=== PATIENT | female | born 1990 | race American Indian/Alaskan Native ===

== ENCOUNTER 2017-02-04 06:01 | Emergency (ER) | payer MEDICAID ==
[2017-02-04] MEDS: MOTRIN PO ONE (06:28)
[2017-02-04 07:01] LABS: Basophils % (Auto) 1.1 % (0.0-1.8); Eosinophils % (Auto) 0.7 % (0.0-4.3); Hematocrit 36.4 % (30.3-42.9); Hemoglobin 12.2 gm/dl (10.1-14.3); Mean Corpuscular HGB Conc 33 % (30-34); Mean Corpuscular Hemoglobin 29 pg (28-32); Mean Corpuscular Volume 88 fl (79-97); Platelet Count 242 K/mm3 (140-440); Red Blood Count 4.16 M/mm3 (3.65-5.03); Red Cell Distribution Width 14.8 % (13.2-15.2); White Blood Count 5.8 K/mm3 (4.5-11.0)
[2017-02-04 07:09] LABS: Anion Gap 19 mmol/L; BUN/Creatinine Ratio 15; Blood Urea Nitrogen 9 mg/dL (7-17); Calcium 8.5 mg/dL (8.4-10.2); Carbon Dioxide 23 mmol/L (22-30); Glucose 81 mg/dL (65-100); Potassium 3.5 mmol/L (3.6-5.0); Sodium 143 mmol/L (137-145)
--- NOTE | 2017-02-04 08:16 | XRay Report ---
CHEST 2 VIEWS INDICATION: Chest pain. COMPARISON: None similar. FINDINGS: Frontal and lateral chest radiographs demonstrate slight exaggerated heart size. Normal mediastinal and hilar contours. Clear lungs. Unremarkable bones. Abdomen shielded. CONCLUSION: Top normal heart size. Thank you for the opportunity to participate in this patient's care.
--- NOTE | 2017-02-04 11:03 | Emergency Department Report ---
ED Chest Pain HPI - General Chief Complaint: Chest Pain Stated Complaint: CHEST PAIN Time Seen by Provider: 02/04/17 10:53 Source: patient Mode of arrival: Stretcher Limitations: No Limitations - History of Present Illness Initial Comments: This is a 26 year-old female who presents to the emergency department from home with complaint of chest pain to the mid upper sternal area of the chest wall that began about 3 in the morning and has been going on since. However the patient did receive some ibuprofen upon arrival, through triage, and now says that she is feeling improved. She denies any shortness of breath, nausea, vomiting, back pain, diaphoresis. She denies tobacco or illicit drug use or abuse. She had not previously taken anything at home prior to presentation. She does not have a primary care physician. She denies any family history of early cardiac disease or events. She denies any past medical history. No recent travel or sick contacts at home. Severity scale (0 -10): 10 - Related Data Previous Rx's Medication Instructions Recorded Last Taken Type Ibuprofen 800 mg PO Q8H PRN #20 tablet 02/04/17 Unknown Rx Allergies Allergy/AdvReac Type Severity Reaction Status Date / Time No Known Allergies Allergy Unverified 02/04/17 06:19 Heart Score - HEART Score History: Slightly suspicious EKG: Normal Age: < 45 Risk factors: No known risk factors Troponin: < normal limit HEART Score: 0 - Critical Actions Critical Actions: 0-3 pts:0.9-1.7%risk of adverse cardiac event.Candidate for discharge ED Review of Systems ROS: Stated complaint: CHEST PAIN Other details as noted in HPI Comment: All other systems reviewed and negative Constitutional: denies: chills, fever Eyes: denies: eye pain, eye discharge, vision change ENT: denies: ear pain, throat pain Respiratory: denies: cough, shortness of breath, wheezing Cardiovascular: chest pain. denies: palpitations Gastrointestinal: denies: abdominal pain, nausea, diarrhea Genitourinary: denies: urgency, dysuria, discharge Musculoskeletal: denies: back pain, joint swelling, arthralgia Skin: denies: rash, lesions Neurological: denies: headache, weakness, paresthesias ED Past Medical Hx - Past Medical History Previous Medical History?: No - Surgical History Past Surgical History?: No - Social History Smoking Status: Never Smoker Substance Use Type: None - Medications Home Medications: Home Medications Medication Instructions Recorded Confirmed Last Taken Type Ibuprofen 800 mg PO Q8H PRN #20 tablet 02/04/17 Unknown Rx ED Physical Exam - General Limitations: No Limitations - Other Other exam information: GENERAL: The patient is well-developed well-nourished. HENT: Normocephalic. Atraumatic. Patient has moist mucous membranes. EYES: Extraocular motions are intact. Pupils equal reactive to light bilaterally. NECK: Supple. Trachea is midline. CHEST/LUNGS: Clear to auscultation. There is no respiratory distress noted. The chest pain is reproducible to palpation of the midsternal chest wall. No crepitus or deformity. HEART/CARDIOVASCULAR: Regular. There is no tachycardia. There is no gallop rub or murmur. ABDOMEN: Abdomen is soft, nontender. Patient has normal bowel sounds. There is no abdominal distention. SKIN: Skin is warm and dry. NEURO: The patient is awake, alert, and oriented. The patient is cooperative. The patient has no focal neurologic deficits. The patient has normal speech. MUSCULOSKELETAL: There is no tenderness or deformity. There is no limitation range of motion. There is no evidence of acute injury. ED Course Vital Signs 02/04/17 06:14 Temperature 98.7 F Pulse Rate 72 Respiratory 16 Rate Blood Pressure 114/75 Blood Pressure 114/75 [Right] O2 Sat by Pulse 100 Oximetry EDVIN score - Edvin Score Age > 65: (0) No Aspirin use within the Past 7 Days: (0) No 3 or more CAD Risk Factors: (0) No 2 or more Angina events in past 24 hrs: (0) No Known CAD with more than 50% Stenosis: (0) No Elevated Cardiac Markers: (0) No ST Deviation Greater than 0.5mm: (0) No EDVIN Score: 0 ED Medical Decision Making - Lab Data Result diagrams: 02/04/17 06:38 02/04/17 06:38 - EKG Data -: EKG Interpreted by Me EKG shows normal: sinus rhythm, axis, intervals (prolonged OR interval), QRS complexes, ST-T waves Rate: normal - EKG Data When compared to previous EKG there are: previous EKG unavailable Interpretation: normal EKG (with prolonged OR interval) - Radiology Data Radiology results: image reviewed interpreted by me: Chest x-ray does not show any acute process. There are no pleural effusions, obvious pneumonia and there is no pneumothorax. - Medical Decision Making 26-year-old female presents with some midsternal chest pain that has been going on since about 3 AM. It is reproducible to palpation and with certain movements. Her EKG does not show any signs of ST elevation IA, ischemia or dysrhythmia. There is a slightly prolonged OR interval could indicate a first- degree AV block, but the patient does not have any current bradycardia. Labs are unremarkable including negative troponins 2. She has a EDVIN score of 0, a heart score of 0. She is low on the well's score criteria and negative on the pulmonary embolism rule out criteria. The patient received some ibuprofen and says that helped with her discomfort. She will be discharged home with NSAIDs, referral for primary care, and a referral for cardiology regarding her first- degree AV block. She will return to the ER with any worsening of symptoms or any acute distress. - Differential Diagnosis IA, costochondritis, pneumonia, malignancy Critical Care Time: No Critical care attestation.: If time is entered above; I have spent that time in minutes in the direct care of this critically ill patient, excluding procedure time. ED Disposition Clinical Impression: Costochondritis, First degree AV block Chest pain Qualifiers: Chest pain type: unspecified Qualified Code(s): R07.9 - Chest pain, unspecified Disposition: DC- TO HOME OR SELFCARE Is pt being admited?: No Condition: Stable Instructions: Chest Pain (ED), Costochondritis (ED) Additional Instructions: Please follow up with a primary care physician in the next few days. I have given you multiple referrals for private primary care physicians as well as primary physician clinics. I have also given you a referral for a local touch up edger, Dr. Spivey, in case he would like to follow up regarding your chest pain. Return to the emergency Department with any worsening of your symptoms or any acute distress. Prescriptions: Ibuprofen 800 mg PO Q8H PRN #20 tablet PRN Reason: Pain Referrals: ALEJO BAILEY MD [Primary Care Provider] - 3-5 Days YAKOV SPIVEY MD [Staff Physician] - 3-5 Days PHILIPPE RUBY MD [Staff Physician] - 3-5 Days [facility] [Outside] - 3-5 Days Time of Disposition: 11:04
[2017-02-04 11:19] VITALS: BP 114/66
== END 2017-02-04 11:21 | disposition home or self-care (01) ==
LOC: ED 06:01
DX: M94.0 Chondrocostal junction syndrome [Tietze] (principal); I44.0 Atrioventricular block, first degree
CPT/HCPCS: 36415; 71020; 80048; 84484; 84703; 85025; 93005; 93010